=== PATIENT | female | born 1960 | race Caucasian/White ===

== ENCOUNTER → 2018-06-04 | Outpatient (CLI) | payer OTHER ==
--- NOTE | 2018-06-04 14:02 | WOMENS IMAGING REPORT ---
EXAM DESCRIPTION: BILAT SCREENING MAMMO W/CAD COMPLETED DATE/TIME: 06/04/2018 8:22 am REASON FOR STUDY: BILATERAL SCREENING MAMMO/Z12.31Z12.31 ENCNTR SCREEN MAMMOGRAM FOR MALIGNANT NEOP LASM OF [place] COMPARISON: 2012 TECHNIQUE: Standard craniocaudal and mediolateral oblique views of each breast recorded using [place] [employer].coma l acquisition. LIMITATIONS: None. FINDINGS: RIGHT BREAST MASSES: In the far right upper outer quadrant about 8 to 10 cm from the nipple a mammographic nodule is present which requires further investigation with cone compression views, 90 mediolateral view, a nd ultrasound CALCIFICATIONS: No new or suspicious calcifications. ARCHITECTURAL DISTORTION: None. DEVELOPING DENSITY: None. ASYMMETRY: None noted. OTHER: No other significant findings. LEFT BREAST MASSES: In the left central retroareolar region about the 12 o'clock position, a mammographic nodule is present which requires further evaluation with cone compression views, 90 mediolateral view and u ltrasound CALCIFICATIONS: There is a cluster of calcifications in the medial left breast which requires further evaluation with compression magnification views and 90 mediolateral view ARCHITECTURAL DISTORTION: None. DEVELOPING DENSITY: None. ASYMMETRY: None noted. OTHER: No other significant findings. Read with the assistance of CAD. .[facility] - R2 Cenova Version 1.3 .[facility] Imaging - R2 Cenova Version 1.3 .[facility] - R2 Cenova Version 2.4 .[facility] [place]2 Cenova Version 2.4 .[facility] - R2 Bonderizer Version 9.2 IMPRESSION: Bilateral mammographic findings which require diagnostic mammography and ultrasound for followup BREAST DENSITY: c. The breasts are heterogeneously dense, which may obscure small masses. BIRAD: 0 Incomplete: Needs Additional Imaging Evaluation and/or prior Mammograms for Comparison. RECOMMENDATION: RECOMMENDED FOLLOW-UP: Bilateral diagnostic mammograms and breast ultrasound The patient will be contacted for additional imaging. COMMENT: The patient has been notified of the results by letter per MQSA requirements. Additional no tification policies are in place for contacting patient with suspicious or incomplete findings. Quality ID #[id number]: The [employer] recommends an annual screening mammogram for women aged 40 years or over. This facility utilizes a reminder system to ensure that all patients receive reminder letters, and/or direct phone calls for appointments. This includes reminders for routine scr eening mammograms, diagnostic mammograms, or other Breast Imaging Interventions when appropriate. Th is patient will be placed in the appropriate reminder system. The [employer] (ACR) has developed recommendations for screening MRI of the breast s in certain patient populations, to be used in conjunction with mammography. Breast MRI surveillanc e may be appropriate for women with more than 20% lifetime risk of developing breast cancer as deter mined by genetic testing, significant family history of the disease, or history of mantle radiation f or Hodgkins Disease. ACR Practice Guidelines 2008. TECHNICAL DOCUMENTATION: FINDING NUMBER: (1) ASSESSMENT: (1) JOB ID: [id number] [employer]- All Rights Reserved Reading location - IP/workstation name: [email or web address]
== END ==
LOC: WI 08:00
PROVIDERS: ATTEND Physician Assistant Medical
DX: Z12.31 Encounter for screening mammogram for malignant neoplasm of breast (principal); R92.0 Mammographic microcalcification found on diagnostic imaging of breast
CPT/HCPCS: 77067

== ENCOUNTER → 2018-06-19 | Outpatient (CLI) | payer OTHER ==
--- NOTE | 2018-06-19 15:10 | WOMENS IMAGING REPORT ---
EXAM DESCRIPTION: BILAT DIAGNOSTIC MAMMO W/CAD; U/S BREAST UNILAT LIMITED COMPLETED DATE/TIME: 06/19/2018 1:37 pm; 06/19/2018 2:52 pm; 06/19/2018 2:51 pm REASON FOR STUDY: BILATERAL BREAST NODULES R92.2,N63.11; BREAST NODULE N63.11 UNSPECIFIED LUMP IN T HE RIGHT BREAST, UPPER OUTER JAK COMPARISON: 06/04/2018 TECHNIQUE: True lateral views of both breasts, cone compression views of both breast, magnification views left breast. LIMITATIONS: None. FINDINGS: RIGHT BREAST MASSES: No masses. CALCIFICATIONS: No new or suspicious calcifications. ARCHITECTURAL DISTORTION: None. DEVELOPING DENSITY: Density in the upper outer quadrant partially compresses out. ASYMMETRY: None noted. OTHER: No other significant findings. LEFT BREAST MASSES: No suspicious masses. CALCIFICATIONS: Calcifications upper inner quadrant uniform density without evidence of branching or associated mass. ARCHITECTURAL DISTORTION: None. DEVELOPING DENSITY: Density in the 12 o'clock position anteriorly partially compresses out. ASYMMETRY: None noted. OTHER: No other significant findings. Ultrasound of both breasts was performed. In the right breast upper outer quadrant there is a 6 x 3 x 8 mm cyst with internal septation. In the left breast anteriorly 12 o'clock there are 2 cysts, the largest 1.8 x 1.4 cm. No solid lyndsay s. IMPRESSION: Benign findings. BREAST DENSITY: b. There are scattered areas of fibroglandular density. BIRAD: 2 Benign findings. RECOMMENDATION: RECOMMENDED FOLLOW UP: Birads 1 or 2: The patient should resume routine screening . SPECIFIC INTERVENTION/IMAGING/CONSULTATION RECOMMENDED:No additional intervention/ imaging/consultati on needed at this time. COMMUNICATION:The imaging findings were not discussed with the patient. Her referring provider has be en notified of the findings. COMMENT: The patient has been notified of the results by letter per SA requirements. Additional no tification policies are in place for contacting patient with suspicious or incomplete findings. Quality ID #[id number]: The [employer] recommends an annual screening mammogram for women aged 40 years or over. This facility utilizes a reminder system to ensure that all patients receive reminder letters, and/or direct phone calls for appointments. This includes reminders for routine scr eening mammograms, diagnostic mammograms, or other Breast Imaging Interventions when appropriate. Th is patient will be placed in the appropriate reminder system. The [employer] (ACR) has developed recommendations for screening MRI of the breast s in certain patient populations, to be used in conjunction with mammography. Breast MRI surveillanc e may be appropriate for women with more than 20% lifetime risk of developing breast cancer as deter mined by genetic testing, significant family history of the disease, or history of mantle radiation f or Hodgkins Disease. ACR Practice Guidelines 2008. TECHNICAL DOCUMENTATION: FINDING NUMBER: (1) ASSESSMENT: (1) JOB ID: [id number] [employer]- All Rights Reserved Reading location - IP/workstation name: [facility] INCLUDES THE [facility]
--- NOTE | 2018-06-19 15:10 | WOMENS IMAGING REPORT ---
EXAM DESCRIPTION: BILAT DIAGNOSTIC MAMMO W/CAD; U/S BREAST UNILAT LIMITED COMPLETED DATE/TIME: 06/19/2018 1:37 pm; 06/19/2018 2:52 pm; 06/19/2018 2:51 pm REASON FOR STUDY: BILATERAL BREAST NODULES R92.2,N63.11; BREAST NODULE N63.11 UNSPECIFIED LUMP IN T HE RIGHT BREAST, UPPER OUTER JAK COMPARISON: 06/04/2018 TECHNIQUE: True lateral views of both breasts, cone compression views of both breast, magnification views left breast. LIMITATIONS: None. FINDINGS: RIGHT BREAST MASSES: No masses. CALCIFICATIONS: No new or suspicious calcifications. ARCHITECTURAL DISTORTION: None. DEVELOPING DENSITY: Density in the upper outer quadrant partially compresses out. ASYMMETRY: None noted. OTHER: No other significant findings. LEFT BREAST MASSES: No suspicious masses. CALCIFICATIONS: Calcifications upper inner quadrant uniform density without evidence of branching or associated mass. ARCHITECTURAL DISTORTION: None. DEVELOPING DENSITY: Density in the 12 o'clock position anteriorly partially compresses out. ASYMMETRY: None noted. OTHER: No other significant findings. Ultrasound of both breasts was performed. In the right breast upper outer quadrant there is a 6 x 3 x 8 mm cyst with internal septation. In the left breast anteriorly 12 o'clock there are 2 cysts, the largest 1.8 x 1.4 cm. No solid lyndsay s. IMPRESSION: Benign findings. BREAST DENSITY: b. There are scattered areas of fibroglandular density. BIRAD: 2 Benign findings. RECOMMENDATION: RECOMMENDED FOLLOW UP: Birads 1 or 2: The patient should resume routine screening . SPECIFIC INTERVENTION/IMAGING/CONSULTATION RECOMMENDED:No additional intervention/ imaging/consultati on needed at this time. COMMUNICATION:The imaging findings were not discussed with the patient. Her referring provider has be en notified of the findings. COMMENT: The patient has been notified of the results by letter per SA requirements. Additional no tification policies are in place for contacting patient with suspicious or incomplete findings. Quality ID #225: The [employer] recommends an annual screening mammogram for women aged 40 years or over. This facility utilizes a reminder system to ensure that all patients receive reminder letters, and/or direct phone calls for appointments. This includes reminders for routine scr eening mammograms, diagnostic mammograms, or other Breast Imaging Interventions when appropriate. Th is patient will be placed in the appropriate reminder system. The [employer] (ACR) has developed recommendations for screening MRI of the breast s in certain patient populations, to be used in conjunction with mammography. Breast MRI surveillanc e may be appropriate for women with more than 20% lifetime risk of developing breast cancer as deter mined by genetic testing, significant family history of the disease, or history of mantle radiation f or Hodgkins Disease. ACR Practice Guidelines 2008. TECHNICAL DOCUMENTATION: FINDING NUMBER: (1) ASSESSMENT: (1) JOB ID: [id number] [employer]- All Rights Reserved Reading location - IP/workstation name: [email or web address]
== END ==
LOC: WI 12:53
PROVIDERS: ATTEND Physician Assistant Medical
DX: N63.11 Unspecified lump in the right breast, upper outer quadrant (principal); R92.2 Inconclusive mammogram
CPT/HCPCS: 76642; 77066